=== PATIENT | male | born 1950 | race Caucasian/White ===

== ENCOUNTER 2016-09-19 22:53 | Emergency (ER) | payer MEDICARE ==
[~2016-09-19] VITALS: Ht 177.8 cm; Wt 91.6 kg
[2016-09-19 22:55] VITALS: BP 129/61
--- NOTE | 2016-09-19 22:56 | PHYS DOC ---
Adult General Chief Complaint Chief Complaint: MECHANICAL FALL HPI HPI Patient is a 65 year old male presenting to the emergency department via EMS for evaluation of a fall and could not stand up on his own. He admits that he was drinking heavily and then he was wearing socks on his kitchen floor when he slipped and fell backwards landing on his butt and he was laying on his back and could not stand up as he could not get any traction with his feet. Patient' s neighbor came to help him and could not get him up on his own so they called 911 and EMS was able to stand him up but they recommended he come to the emergency department. Patient is quite pleasant and he denies any complaints whatsoever including head neck chest abdomen or extremity pain. He is alert and oriented 4 and said he had to urinate and walk to the bathroom with a normal gait. Review of Systems Review of Systems Constitutional: Denies fever or chills [] Eyes: Denies change in visual acuity, redness, or eye pain [] HENT: Denies nasal congestion or sore throat [] Respiratory: Denies cough or shortness of breath [] Cardiovascular: No additional information not addressed in HPI [] GI: Denies abdominal pain, nausea, vomiting, bloody stools or diarrhea [] : Denies dysuria or hematuria [] Musculoskeletal: Denies back pain or joint pain [] Integument: Denies rash or skin lesions [] Neurologic: Denies headache, focal weakness or sensory changes [] Physical Exam Physical Exam Constitutional: Well developed, well nourished, no acute distress, non-toxic appearance. [] HENT: Normocephalic, atraumatic, bilateral external ears normal, oropharynx moist, no oral exudates, nose normal. [] Eyes: PERRLA, EOMI, conjunctiva normal, no discharge. [] Neck: Normal range of motion, no tenderness, supple, no stridor. [] Cardiovascular:Heart rate regular rhythm, no murmur [] Lungs & Thorax: Bilateral breath sounds clear to auscultation [] Abdomen: Bowel sounds normal, soft, no tenderness, no masses, no pulsatile masses. [] Skin: Warm, dry, no erythema, no rash. Multiple skin lesions on face and one large skin lesion on the back consistent with carcinoma likely basal cell or squamous cell. Back: No tenderness, no CVA tenderness. [] Extremities: No tenderness, no cyanosis, no clubbing, ROM intact, no edema. [] Neurologic: Alert and oriented X 3, normal motor function, normal sensory function, no focal deficits noted. [] Current Patient Data Vital Signs Vital Signs Date Time Temp Pulse Resp B/P Pulse Ox O2 Delivery O2 Flow Rate FiO2 09/19/16 22:55 98.2 80 18 129/61 91 Room Air 3 98.2 EKG EKG [] Radiology/Procedures Radiology/Procedures [] Course & Med Decision Making Course & Med Decision Making I recommended at least a CT of his head given he had these cancer appearing lesions that could metastasize. Patient refused stating he feels fine and he rather follow up with his primary care provider for these complaints. Patient is alert and oriented 4 and walking with a steady gait and is requesting to go home and I have no reason to keep him against his will also he will be discharged in stable condition. Patient aware and agreeable to plan for discharge and verbalized understanding of the need for short-term follow-up and strict ER return precautions discussed worsening pain weakness with original concerns. Dragon Disclaimer Dragon Disclaimer This electronic medical record was generated, in whole or in part, using a voice recognition dictation system. Departure Departure Impression: Primary Impression: Alcohol abuse Disposition: 01 HOME, SELF-CARE Condition: GOOD Patient Instructions: Alcohol Intoxication BRENDA DIAZ DO September 19, 2016 22:56
== END 2016-09-19 23:39 | disposition home or self-care (01) ==
LOC: ER 22:53
DX: F10.10 Alcohol abuse, uncomplicated (principal); Y90.9 Presence of alcohol in blood, level not specified
CPT/HCPCS: 99284

== ENCOUNTER 2019-03-01 01:44 | Emergency (ER) | payer MEDICARE, OTHER ==
[~2019-03-01] VITALS: Ht 175.3 cm; Wt 80.7 kg
[2019-03-01] MEDS ORDERED: IPRATRPIUM/ALBUTEROL 0.5/2.5MG 3 ML NEBU. NEB ONE (02:30)
[2019-03-01] MEDS ORDERED: ONDANSETRON PF 4 MG/2 ML VIAL. IV ONE (02:30)
[2019-03-01] MEDS ORDERED: MORPHINE SULFATE 4 MG/ML VIAL. IV ONE (02:30)
[2019-03-01] MEDS ORDERED: FUROSEMIDE 40 MG/4 ML VIAL. IVP ONE (02:30)
[2019-03-01 02:32] LABS: BASO % 0 % (0-3); EOS % 0 % (0-3); HEMATOCRIT 30.8 % (39.0-53.0); HEMOGLOBIN 10.3 g/dL (13.0-17.5); LYMPH # 0.3 x10^3/uL (1.0-4.8); LYMPH % 5 % (24-48); MEAN CORPUSCULAR HEMOGLOBIN 32 pg (25-35); MEAN CORPUSCULAR HGB CONC 34 g/dL (31-37); MEAN CORPUSCULAR VOLUME 95 fL (79-100); MONO % 14 % (0-9); NEUT # 5.9 x10^3/uL (1.8-7.7); NEUT % 81 % (31-73); PLATELET COUNT 229 x10^3/uL (140-400); RED BLOOD COUNT 3.23 x10^6/uL (4.30-5.70); RED CELL DISTRIBUTION WIDTH 18.9 % (11.5-14.5); WHITE BLOOD COUNT 7.3 x10^3/uL (4.0-11.0)
[2019-03-01 02:42] LABS: CREATININE 0.9 mg/dL (0.7-1.3); GFR 83.4; POTASSIUM 3.7 mmol/L (3.5-5.1)
[2019-03-01 02:48] LABS: ALBUMIN 3.2 g/dL (3.4-5.0); ALBUMIN/GLOBULIN RATIO 0.7 (1.0-1.7); TOTAL BILIRUBIN 0.5 mg/dL (0.2-1.0); TOTAL PROTEIN 7.7 g/dL (6.4-8.2)
[2019-03-01 03:03] LABS: INFLUENZA A PATIENT NEGATIVE (NEGATIVE); INFLUENZA B PATIENT NEGATIVE (NEGATIVE)
--- NOTE | 2019-03-01 03:07 | PHYS DOC ---
Past Medical History Past Medical History: High Cholesterol, Hypertension, [place], Stroke Past Surgical History: Other Additional Past Surgical Histo: JAW Alcohol Use: Heavy Drug Use: None Adult General Chief Complaint Chief Complaint: DYSPNEA/RESPIRATOY DISTRESS HPI HPI Patient is a 68-year-old male who presents with report of acute onset of shortness of breath that started this evening. Patient had similar episode in the past where he had developed fluid on the lungs and had to have diuretics. P [place] has tracheostomy in place due to having throat cancer. EMS reports that upon their arrival patient noted to have O2 sat in the 60s. They state that when they put him on oxygen, oxygen saturation came up to the 70s.[] Review of Systems Review of Systems Constitutional: No reported fever[] Respiratory: Positive cough and shortness of breath [] Cardiovascular: No additional information not addressed in HPI [] Integument: Denies rash or skin lesions [] Neurologic: Denies headache, focal weakness or sensory changes [] Unable to fully assess review of systems due to severity of patient condition. Current Medications Current Medications Current Medications Medications (Trade) Dose Ordered Sig/Brittaney Start Time Stop Time Status Last Admin Dose Admin Albuterol/ Ipratropium (Duoneb) 3 ml 1X ONCE 03/01/19 02:30 03/01/19 02:31 DC 03/01/19 02:20 3 ML Furosemide (Lasix) 60 mg 1X ONCE 03/01/19 02:30 03/01/19 02:31 DC 03/01/19 02:32 60 MG Lorazepam (Ativan Inj) 1 mg 1X ONCE 03/01/19 02:30 03/01/19 02:31 DC 03/01/19 02:32 1 MG Morphine Sulfate (Morphine Sulfate) 4 mg 1X ONCE 03/01/19 02:30 03/01/19 02:31 DC 03/01/19 02:32 4 MG Ondansetron HCl (Zofran) 4 mg 1X ONCE 03/01/19 02:30 03/01/19 02:31 DC 03/01/19 02:32 4 MG Piperacillin Sod/ Tazobactam Sod 3.375 gm/Sodium Chloride 50 ml @ 100 mls/hr 1X ONCE 03/01/19 04:00 03/01/19 04:29 DC 03/01/19 04:19 100 MLS/HR Vancomycin HCl 250 ml @ 250 mls/hr 1X ONCE 03/01/19 04:00 03/01/19 04:59 Allergies Allergies Allergies Coded Allergies Type Severity Reaction Last Updated Verified No Known Drug Allergies 09/19/16 No Physical Exam Physical Exam Constitutional: Well developed, well nourished, no acute distress, non-toxic appearance. [] HENT: Normocephalic, atraumatic, bilateral external ears normal, oropharynx dry, no oral exudates, nose normal. [] Eyes: PERRLA, EOMI, conjunctiva normal, no discharge. [] Neck: Normal range of motion, tracheostomy in place with purulent sputum noted per os. [] Cardiovascular: Regular rate and rhythm[] Lungs & Thorax: Coarse rhonchi are noted bilaterally to auscultation [] Abdomen: Bowel sounds normal, soft. [] Skin: Warm, dry, no erythema, no rash. [] Extremities: No tenderness, no cyanosis, no clubbing, ROM intact, no edema. [] Neurologic: Alert and oriented X 3, no focal deficits noted. [] Current Patient Data Vital Signs Vital Signs Date Time Temp Pulse Resp B/P (MAP) Pulse Ox O2 Delivery O2 Flow Rate FiO2 03/01/19 04:15 100 Ventilator 03/01/19 01:45 98.6 111 34 119/78 (92) 98.6 Lab Values Laboratory Tests Test 03/01/19 02:20 03/01/19 02:38 White Blood Count 7.3 x10^3/uL (4.0-11.0) Red Blood Count 3.23 x10^6/uL (4.30-5.70) L Hemoglobin 10.3 g/dL (13.0-17.5) L Hematocrit 30.8 % (39.0-53.0) L Mean Corpuscular Volume 95 fL (79-100) Mean Corpuscular Hemoglobin 32 pg (25-35) Mean Corpuscular Hemoglobin Concent 34 g/dL (31-37) Red Cell Distribution Width 18.9 % (11.5-14.5) H Platelet Count 229 x10^3/uL (140-400) Neutrophils (%) (Auto) 81 % (31-73) H Lymphocytes (%) (Auto) 5 % (24-48) L Monocytes (%) (Auto) 14 % (0-9) H Eosinophils (%) (Auto) 0 % (0-3) Basophils (%) (Auto) 0 % (0-3) Neutrophils # (Auto) 5.9 x10^3/uL (1.8-7.7) Lymphocytes # (Auto) 0.3 x10^3/uL (1.0-4.8) L Monocytes # (Auto) 1.0 x10^3/uL (0.0-1.1) Eosinophils # (Auto) 0.0 x10^3/uL (0.0-0.7) Basophils # (Auto) 0.0 x10^3/uL (0.0-0.2) Segmented Neutrophils % 83 % (35-66) H Band Neutrophils % 2 % (0-9) Lymphocytes % 5 % (24-48) L Monocytes % 10 % (0-10) Platelet Estimate Adequate (ADEQUATE) Hypochromasia Slight D-Dimer (Lynette) 1.14 ug/mlFEU (0.00-0.50) H Sodium Level 140 mmol/L (136-145) Potassium Level 3.7 mmol/L (3.5-5.1) Chloride Level 102 mmol/L (98-107) Carbon Dioxide Level 26 mmol/L (21-32) Anion Gap 12 (6-14) Blood Urea Nitrogen 21 mg/dL (8-26) Creatinine 0.9 mg/dL (0.7-1.3) Estimated GFR (Cockcroft-Gault) 83.4 BUN/Creatinine Ratio 23 (6-20) H Glucose Level 211 mg/dL (70-99) H Lactic Acid Level 3.9 mmol/L (0.4-2.0) H Calcium Level 9.0 mg/dL (8.5-10.1) Total Bilirubin 0.5 mg/dL (0.2-1.0) Aspartate Amino Transferase (AST) 21 U/L (15-37) Alanine Aminotransferase (ALT) 41 U/L (16-63) Alkaline Phosphatase 136 U/L (46-116) H Troponin I Quantitative 0.210 ng/mL (0.000-0.055) RA-Uwa-H-Type Natriuretic Peptide 5847 pg/mL (0-124) H Total Protein 7.7 g/dL (6.4-8.2) Albumin 3.2 g/dL (3.4-5.0) L Albumin/Globulin Ratio 0.7 (1.0-1.7) L Influenza Type A Antigen Negative (NEGATIVE) Influenza Type B Antigen Negative (NEGATIVE) Laboratory Tests 03/01/19 02:20 Laboratory Tests 03/01/19 02:20 EKG EKG [] Radiology/Procedures Radiology/Procedures [] Course & Med Decision Making Course & Med Decision Making Pertinent Labs and Imaging studies reviewed. (See chart for details) [] Dragon Disclaimer Dragon Disclaimer This electronic medical record was generated, in whole or in part, using a voice recognition dictation system. Departure Departure Impression: Primary Impression: Respiratory distress Additional Impression: CHF (congestive heart failure) Disposition: 02 TRANSFER [facility] Condition: IMPROVED Referrals: KATHRINE GELLER MD (PCP) Problem Qualifiers Additional Impression: CHF (congestive heart failure) Heart failure type: unspecified Heart failure chronicity: unspecified Qualified Codes: I50.9 - Heart failure, unspecified KENNEDI FARMER Jr. DO Mar 01, 2019 03:07
[2019-03-01 03:11] LABS: % BANDS 2 % (0-9); % LYMPHS 5 % (24-48); % MONOS 10 % (0-10); % SEGS 83 % (35-66); PLT ESTIMATE ADEQUATE (ADEQUATE)
[2019-03-01 03:12] LABS: HYPOCHROMIA SLIGHT
[2019-03-01] MEDS ORDERED: PIPERACILLIN/TAZOBACTAM 3.375 GM in IV NORMAL SALINE 50ML 50 ML IV ONE (04:00)
[2019-03-01] MEDS ORDERED: VANCOMYCIN 1GM IVPB FOR OMNI 250 ML IV ONE (04:00)
[2019-03-01 05:24] VITALS: BP 102/61
--- NOTE | 2019-03-01 06:41 | RAD ---
Study: CHEST AP ONLY Indication: Shortness of breath. Comparison: None available. Findings: Tracheostomy tube. Right chest wall Port-A-Cath terminating at the expected location of the superior cavoatrial junction. The cardiomediastinal silhouette is prominent in size. Cephalization of the central vascular structures. Bibasilar hazy opacities and bilateral pleural effusions. No pneumothorax. Impression: Hazy bibasilar airspace opacities as well as bilateral pleural effusions. The appearance could be related to congestive heart failure/volume overload with the haziness related to atelectasis however the ill-defined nature of this haziness as well as the density raises concern for a superimposed pneumonia. Recommend correlation with laboratory analysis as well as follow-up to document improvement. Electronically signed by: LEO MCBRIDE MD (03/01/2019 6:37 AM) [facility]
--- NOTE | 2019-03-02 11:45 | EKG ---
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
== END 2019-03-01 05:44 | disposition short-term general hospital (02) ==
LOC: ER 01:44
DX: R06.03 Acute respiratory distress (principal); I11.0 Hypertensive heart disease with heart failure; I50.9 Heart failure, unspecified; E78.00 Pure hypercholesterolemia, unspecified; I25.2 Old myocardial infarction; F10.20 Alcohol dependence, uncomplicated; Y90.9 Presence of alcohol in blood, level not specified; Z93.0 Tracheostomy status; Z85.89 Personal history of malignant neoplasm of other organs and systems; Z86.73 Personal history of transient ischemic attack (TIA), and cerebral infarction without residual deficits
CPT/HCPCS: 36415; 71045; 80053; 83605; 83880; 84484; 85007; 85025; 85379; 87040; 87804; 93005; 94640; 96365; 96367; 96375; 99285; J1940; J2060; J2270; J2405; J2543; J3370; J7620